=== PATIENT | male | born 1990 | race African-American/Black ===

== ENCOUNTER 2020-03-12 17:02 | Emergency (ER) | payer OTHER ==
[2020-03-12] MEDS ORDERED: HYDROCODONE/ACETAMINOPHEN 5-325 MG TABLET PO ONE (18:26)
[2020-03-12] MEDS ORDERED: DIPH/PERTUSS(ACELL)/TETANUS VAC/PF 0.5 ML SYR (>=10YO) IM ONE ×2 (18:26→21:00)
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
[2020-03-12] MEDS ORDERED: HYDROCODONE/ACETAMINOPHEN 5-325 MG (6 TAB/ER DISP) PO PRN (19:56)
[2020-03-12 21:05] VITALS: BP 161/96
== END 2020-03-12 21:05 | disposition home or self-care (01) ==
LOC: ER 17:02
DX: S43.402A Unspecified sprain of left shoulder joint, initial encounter (principal); S93.401A Sprain of unspecified ligament of right ankle, initial encounter; S73.102A Unspecified sprain of left hip, initial encounter; S40.212A Abrasion of left shoulder, initial encounter; S70.212A Abrasion, left hip, initial encounter; S90.411A Abrasion, right great toe, initial encounter; S50.312A Abrasion of left elbow, initial encounter; M79.671 Pain in right foot; V86.56XA Driver of dirt bike or motor/cross bike injured in nontraffic accident, initial encounter; F17.200 Nicotine dependence, unspecified, uncomplicated; Z23 Encounter for immunization
CPT/HCPCS: 90471; 90715; 99284

== ENCOUNTER 2020-05-06 17:23 | Emergency (ER) | payer OTHER ==
[2020-05-06 17:30] VITALS: BP 147/90
[2020-05-06] MEDS ORDERED: HYDROCODONE/ACETAMINOPHEN 5-325 MG TABLET PO ONE (17:40)
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
== END 2020-05-06 19:17 | disposition home or self-care (01) ==
LOC: ER 17:23
DX: S39.012A Strain of muscle, fascia and tendon of lower back, initial encounter (principal); S16.1XXA Strain of muscle, fascia and tendon at neck level, initial encounter; V49.9XXA Car occupant (driver) (passenger) injured in unspecified traffic accident, initial encounter; J45.909 Unspecified asthma, uncomplicated
CPT/HCPCS: 72050; 72070; 72110; 99284